=== PATIENT | female | born 1975 | race Caucasian/White ===

== ENCOUNTER → 2016-03-31 | Outpatient (CLI) | payer BC ==
--- NOTE | 2016-04-01 10:50 | ECHOF ---
Referral Reason:C50.111 Breast ca,Z01.818 Pre-chemo MEASUREMENTS -------- HEIGHT: 154.9 cm WEIGHT: 113.4 kg BP: IVSd: 1.2 cm (0.6 - 1.1) LVIDd: 3.9 cm (3.9 - 5.3) LVPWd: 1.5 cm (0.6 - 1.1) IVSs: 1.8 cm LVIDs: 1.9 cm LVPWs: 2.0 cm Ao Diam: 3.2 cm (2.0 - 3.7) AV Cusp: 1.7 cm (1.5 - 2.6) LA Diam: 3.0 cm (2.7 - 3.8) MV EXCURSION: 10.412 mm (> 18.000) MV EF SLOPE: 46 mm/s (70 - 150) EPSS: 0.6 cm MV E Jose: 1.03 m/s MV DecT: 168 ms MV A Jose: 1.01 m/s MV E/A Ratio: 1.02 RAP: 5.00 mmHg RVSP: 10.17 mmHg FINDINGS -------- Sinus rhythm. This was a technically adequate study. There is moderate concentric left ventricular hypertrophy. Overall left ventricular systolic function is normal with, an EF between 55 - 60 %. The right ventricle is normal in size and function. The left atrium is normal in size. The right atrium is normal in size. The aortic valve is trileaflet, and appears structurally normal. No aortic stenosis or regurgitation. The mitral valve leaflets are mildly thickened. Mild mitral regurgitation is present. Mild tricuspid regurgitation present. The right ventricular systolic pressure, as measured by Doppler, is 10.17mmHg. Pulmonic valve appears structurally normal. The aortic root, ascending aorta and aortic arch are normal. The pericardium is normal. CONCLUSIONS -------- 1. Sinus rhythm. 2. Mild mitral regurgitation is present. 3. Mild tricuspid regurgitation present. 4. The right ventricular systolic pressure, as measured by Doppler, is 10.17mmHg. 5. Pulmonic valve appears structurally normal. 6. The aortic root, ascending aorta and aortic arch are normal. 7. The pericardium is normal. 8. This was a technically adequate study. 9. There is moderate concentric left ventricular hypertrophy. 10. Overall left ventricular systolic function is normal with, an EF between 55 - 60 %. 11. The right ventricle is normal in size and function. 12. The left atrium is normal in size. 13. The right atrium is normal in size. 14. The aortic valve is trileaflet, and appears structurally normal. No aortic stenosis or regurgitation. 15. The mitral valve leaflets are mildly thickened. NATIONAL STORMWATER LEADER: Radha Mullins RDCS
== END | disposition home or self-care (01) ==
LOC: RADECHMAIN 13:53
PROVIDERS: ATTEND Internal Medicine Hematology & Oncology
DX: Z01.818 Encounter for other preprocedural examination (principal); C50.919 Malignant neoplasm of unspecified site of unspecified female breast; I08.1 Rheumatic disorders of both mitral and tricuspid valves
CPT/HCPCS: 93306

== ENCOUNTER 2016-04-10 06:23 | Day surgery (SDC) | payer BC ==
[2016-04-08 14:25] VITALS: BMI 52.9
[~2016-04-10 06:23] MED LIST: DEXAMETHASONE SOD PHOSPHATE 10 MG/ML 1 ML VIAL IV ONE; HYDROmorphone 1 MG/ML 1 ML SYRINGE IVP PRN; LACTATED RINGERS 1,000 ML IV SCH; MIDAZOLAM 2 MG/2 ML VIAL IV PRN; ONDANSETRON 4 MG/2 ML VIAL IVP ONE; SCOPOLAMINE 1.5MG/72HR PATCH TRANSDERM ONE
[2016-04-10 06:55] VITALS: TEMP 97.7
[2016-04-10] MEDS ORDERED: HEPARIN SODIUM,PORCINE 5,000 UNIT/ML 1 ML VIAL SQ ONE (07:39)
--- NOTE | 2016-04-10 07:41 | P.GSHP ---
History of Present Illness H&P Date: 04/10/16 Chief Complaint: Right breast cancer Patient was diagnosed with right-sided breast cancer in December of last year. The patient was found have a 2.3 cm mass in the right breast. Axillary adenopathy was also noted but negative on biopsy. She was triple positive. She is undergoing neoadjuvant therapy. Port-A-Cath is requested for the administration of chemotherapy. Definitive surgery has not taken place. Past Medical History Past Medical History: Hypertension, Pneumonia Additional Past Medical History / Comment(s): IBS History of Any Multi-Drug Resistant Organisms: None Reported Past Surgical History: Breast Surgery Additional Past Surgical History / Comment(s): D&C, Breast reduction Past Anesthesia/Blood Transfusion Reactions: No Reported Reaction Past Psychological History: No Psychological Hx Reported Smoking Status: Current every day smoker Past Alcohol Use History: Rare Past Drug Use History: None Reported - Past Family History Mother Family Medical History: No Reported History Medications and Allergies Home Medications Medication Instructions Recorded Confirmed Type Cetirizine HCl 10 mg PO DAILY 10/15/13 04/10/16 History Hydrochlorothiazide [Hydrodiuril] 25 mg PO DAILY 10/15/13 04/10/16 History Lisinopril [Zestril] 20 mg PO DAILY 10/15/13 04/10/16 History Acetaminophen [Tylenol] 500 mg PO Q4-6H PRN 04/08/16 04/10/16 History Metoprolol Tartrate [Lopressor] 50 mg PO DAILY 04/08/16 04/10/16 History Tamoxifen [Nolvadex] 20 mg PO DAILY 04/08/16 04/10/16 History Allergies Allergy/AdvReac Type Severity Reaction Status Date / Time No Known Allergies Allergy Verified 04/10/16 06:57 Surgical - Exam Vital Signs Temp Pulse Resp BP Pulse Ox 97.7 F 81 18 150/91 98 04/10/16 06:53 04/10/16 06:53 04/10/16 06:53 04/10/16 06:53 04/10/16 06:53 Physical exam: General: Well-developed, well-nourished HEENT: Normocephalic, sclerae nonicteric Abdomen: Nontender, nondistended Extremities: No edema Neuro: Alert and oriented Assessment and Plan (1) Breast cancer, right Narrative/Plan: Will proceed with Port-A-Cath placement today. The risks of bleeding, infection , pneumothorax, DVT, catheter malfunction were discussed. She understands and wishes to proceed. Status: Acute
[2016-04-10] MEDS ORDERED: KETAMINE 10 MG/ML 20 ML VIAL ONE (07:49)
[2016-04-10] MEDS ORDERED: PROPOFOL 10 MG/ML 20 ML VIAL IV ONE (07:49)
[2016-04-10] MEDS ORDERED: LIDOCAINE 1% INJ 10MG/ML (20 ML MDV) ONE (07:49)
[2016-04-10] MEDS ORDERED: GLYCOPYRROLATE 0.2 MG/ML 2 ML VIAL ONE (07:49)
[2016-04-10] MEDS ORDERED: fentaNYL (PF) 50 MCG/ML 2 ML AMP ONE (07:49)
[2016-04-10] MEDS ORDERED: MIDAZOLAM 2 MG/2 ML VIAL ONE (07:49)
[2016-04-10] MEDS: ceFAZolin 3 GM in SODIUM CHLORIDE 0.9% 100 ML IVPB ONE ×2 (07:57→08:13)
[2016-04-10] MEDS ORDERED: LIDOCAINE (PF) 10 MG/ML 2 ML VIAL SQ ONE (08:12)
[2016-04-10] MEDS ORDERED: HEPARIN SODIUM,PORCINE 100 UNIT/ML 5 ML VIAL IV ONE (08:13)
[2016-04-10] MEDS ORDERED: LACTATED RINGERS 1,000 ML IV ONE (08:52)
[2016-04-10] MEDS ORDERED: NALOXONE 0.4 MG/ML 1 ML VIAL IV PRN (09:06)
--- NOTE | 2016-04-10 09:10 | P.PCN ---
Date of Procedure: 04/10/16 Procedure(s) Performed: PREOPERATIVE DIAGNOSIS: Breast cancer POSTOPERATIVE DIAGNOSIS: Same PROCEDURE: Port-A-Cath placement SURGEON: Yodit EBL: Minimal ANESTHESIA: Sedation COMPLICATIONS: None OPERATIVE PROCEDURE: Patient was brought and placed on the operative table in the supine position. The patient was sedated per anesthesia that time. The chest and neck were prepped and draped in usual sterile fashion. The ultrasound probe was used to identify the location of the right internal jugular vein. The skin was localized with lidocaine. The Seldinger needle was advanced into the IJ under ultrasound guidance. The wire was advanced through the needle under fluoroscopic guidance into the lower aspect of the neck. In doing so the anatomy suggested that this may have represented the external jugular vein. The needle was withdrawn. The patient's neck was extremely thick. The ultrasound was re-utilized. The internal jugular vein was then identified were in the neck. Under ultrasound guidance again Seldinger needle was advanced into the vein and the wire was advanced under fluoroscopic guidance to the right atrium. A port pocket was created in the right infraclavicular location. The 8-Czech catheter was tunneled from the wire entrance site to the port pocket. The port was then connected to the catheter. The dilator introducer was threaded over the guidewire. The guidewire and dilator were then removed. The catheter was advanced through the introducer and introducer was then removed. The tip was seen to be in the right atrial junction. Port was flushed with both saline and a Hep-Lock solution. There was good flow both in and out of the port. The port was sutured in underlying tissues using 3-0 silk sutures. The subcutaneous tissues were reapproximated using 3-0 Vicryl sutures and the skin at both locations using 4-0 Monocryl sutures. Steri-Strips and sterile dressings then applied. DISPOSITION: Stable to recovery room
--- NOTE | 2016-04-10 09:21 | FL ---
EXAMINATION TYPE: FL guided central line placemt DATE OF EXAM: 04/10/2016 9:04 AM HISTORY: PORT A CATH 2 scanned films; Dr. smart; fl time 44 seconds; insert port a cath
[2016-04-10 09:22] VITALS: RESP 18
--- NOTE | 2016-04-10 09:45 | XR ---
EXAMINATION TYPE: XR chest 1V confirm line [facility] DATE OF EXAM: 04/10/2016 9:33 AM HISTORY: Line placement COMPARISON: 10/15/2013 TECHNIQUE: Single view of the chest is submitted. FINDINGS: Right internal jugular Port-A-Cath is placed with its distal tip overlying the SVC. No evidence for p neumothorax. There is no evidence for focal infiltrate. The heart is stable. Hilar and mediastinal structures are within normal limits. Degenerative changes are seen of the dorsal spine. IMPRESSION: 1. Central venous line as discussed without evidence of pneumothorax.
[2016-04-10 10:18] VITALS: BP 137/90; PULSE 82
== END 2016-04-10 10:44 | disposition home or self-care (01) ==
LOC: OR 06:23
PROVIDERS: ATTEND Surgery
DX: Z45.2 Encounter for adjustment and management of vascular access device (principal); C50.911 Malignant neoplasm of unspecified site of right female breast; R59.0 Localized enlarged lymph nodes; I10 Essential (primary) hypertension; F17.200 Nicotine dependence, unspecified, uncomplicated; Z79.899 Other long term (current) drug therapy
CPT/HCPCS: 81025; 84132; 77001; 36561; C1788; J2250; J2001 ×2; J1644; J1642; J1100; J0690; J2405; J3010; J1170; J2704

== ENCOUNTER → 2016-06-22 | Outpatient (CLI) | payer BC ==
--- NOTE | 2016-06-23 12:32 | ECHOF ---
Referral Reason:Z01.818 chemo MEASUREMENTS -------- HEIGHT: 152.4 cm WEIGHT: 123.4 kg BP: 141/71 RVIDd: 2.9 cm (< 3.3) IVSd: 1.2 cm (0.6 - 1.1) LVIDd: 3.6 cm (3.9 - 5.3) LVPWd: 1.2 cm (0.6 - 1.1) IVSs: 1.5 cm LVIDs: 2.3 cm LVPWs: 1.5 cm LA Diam: 3.3 cm (2.7 - 3.8) Ao Diam: 3.4 cm (2.0 - 3.7) AV Cusp: 1.9 cm (1.5 - 2.6) MV EXCURSION: 12.690 mm (> 18.000) MV EF SLOPE: 55 mm/s (70 - 150) EPSS: 0.3 cm MV E Jose: 0.89 m/s MV DecT: 341 ms MV A Jose: 0.97 m/s MV E/A Ratio: 0.92 FINDINGS -------- Sinus rhythm. This was a technically difficult study with suboptimal views. The left ventricular size is normal. There is borderline concentric left ventricular hypertrophy. Overall left ventricular systolic function is normal with, an EF between 60 - 65 %. The right ventricle is normal in size. The left atrial size is normal. The right atrium is normal in size. The aortic valve was not well visualized. The mitral valve is normal. The tricuspid valve appears structurally normal. The pulmonic valve was not well visualized. The aortic root size is normal. Normal inferior vena cava with normal inspiratory collapse consistent with estimated right atrial pressure of 5 mmHg. There is no pericardial effusion. CONCLUSIONS -------- 1. Sinus rhythm. 2. The aortic root size is normal. 3. Normal inferior vena cava with normal inspiratory collapse consistent with estimated right atrial pressure of 5 mmHg. 4. There is no pericardial effusion. 5. This was a technically difficult study with suboptimal views. 6. There is borderline concentric left ventricular hypertrophy. 7. Overall left ventricular systolic function is normal with, an EF between 60 - 65 %. 8. The left atrial size is normal. 9. The aortic valve was not well visualized. 10. The mitral valve is normal. 11. The tricuspid valve appears structurally normal. 12. The pulmonic valve was not well visualized. MANAGEMENT ENGINEER: Annmarie Valdes RDCS
== END | disposition home or self-care (01) ==
LOC: RADECHMAIN 13:07
PROVIDERS: ATTEND Internal Medicine Hematology & Oncology
DX: Z01.818 Encounter for other preprocedural examination (principal); I51.7 Cardiomegaly
CPT/HCPCS: 93306

== ENCOUNTER → 2016-09-02 | Outpatient (CLI) | payer BC ==
--- NOTE | 2016-09-03 11:43 | ECHOF ---
Referral Reason:C50.111 Breast CA Z01.818 Pre Chemo MEASUREMENTS -------- HEIGHT: 152.4 cm WEIGHT: 131.5 kg BP: RVIDd: 3.4 cm (< 3.3) IVSd: 1.2 cm (0.6 - 1.1) LVIDd: 3.9 cm (3.9 - 5.3) LVPWd: 1.1 cm (0.6 - 1.1) IVSs: 1.2 cm LVIDs: 3.3 cm LVPWs: 1.2 cm MV EXCURSION: 15.119 mm (> 18.000) MV EF SLOPE: 91 mm/s (70 - 150) EPSS: 0.6 cm MV E Jose: 0.81 m/s MV DecT: 252 ms MV A Jose: 0.86 m/s MV E/A Ratio: 0.94 FINDINGS -------- Sinus rhythm. This was a technically adequate study. There is mild concentric left ventricular hypertrophy. Overall left ventricular systolic function is low-normal with, an EF between 50 - 55 %. The right ventricle is normal in size. The left atrial size is normal. The right atrial size is normal. There is mild aortic valve sclerosis. There is no evidence of aortic regurgitation. Mild mitral annular calcification present. Mild mitral regurgitation is present. Mild tricuspid regurgitation present. There is no evidence of pulmonary hypertension. The right ventricular systolic pressure, as measured by Doppler, is {RVSP}. There is no pulmonic regurgitation present. The aortic root size is normal. There is no pericardial effusion. CONCLUSIONS -------- 1. There is mild concentric left ventricular hypertrophy. 2. Overall left ventricular systolic function is low-normal with, an EF between 50 - 55 %. 3. There is mild aortic valve sclerosis. 4. Mild mitral annular calcification present. 5. Mild mitral regurgitation is present. 6. Mild tricuspid regurgitation present. 7. There is no evidence of pulmonary hypertension. 8. The right ventricular systolic pressure, as measured by Doppler, is {RVSP}. MEDICAL COST CONSULTANT: Jayla Rutherford RDCS
== END | disposition home or self-care (01) ==
LOC: RADECHMAIN 15:02
PROVIDERS: ATTEND Internal Medicine Hematology & Oncology
DX: Z01.818 Encounter for other preprocedural examination (principal); I34.0 Nonrheumatic mitral (valve) insufficiency; I07.1 Rheumatic tricuspid insufficiency; I35.8 Other nonrheumatic aortic valve disorders
CPT/HCPCS: 93306

== ENCOUNTER → 2016-12-14 | Outpatient (CLI) | payer BC ==
--- NOTE | 2016-12-15 08:23 | ECHOF ---
Referral Reason:C50.111 Breast CA MEASUREMENTS -------- HEIGHT: 152.4 cm WEIGHT: 132.4 kg BP: IVSd: 0.9 cm (0.6 - 1.1) LVIDd: 4.0 cm (3.9 - 5.3) LVPWd: 1.1 cm (0.6 - 1.1) IVSs: 1.6 cm LVIDs: 2.3 cm LVPWs: 1.9 cm Ao Diam: 3.2 cm (2.0 - 3.7) AV Cusp: 2.3 cm (1.5 - 2.6) LA Diam: 3.4 cm (2.7 - 3.8) MV EXCURSION: 10.759 mm (> 18.000) MV EF SLOPE: 56 mm/s (70 - 150) EPSS: 0.5 cm MV E Jose: 0.94 m/s MV DecT: 171 ms MV A Jose: 0.93 m/s MV E/A Ratio: 1.01 RAP: 5.00 mmHg RVSP: 13.09 mmHg FINDINGS -------- Sinus rhythm. This was a technically difficult study with suboptimal views. The left ventricular size is normal. Left ventricular wall thickness is normal. Overall left ventricular systolic function is normal with, an EF between 55 - 60 %. The right ventricle is normal in size and function. The left atrium is normal in size. The right atrium is normal in size. Lumison used to enhance images The aortic valve is trileaflet, and appears structurally normal. No aortic stenosis or regurgitation. There is trace mitral regurgitation. Trace tricuspid regurgitation present. The right ventricular systolic pressure, as measured by Doppler, is 13.09mmHg. Pulmonic valve appears structurally normal. The aortic root, ascending aorta and aortic arch are normal. The pericardium is normal. CONCLUSIONS -------- 1. Sinus rhythm. 2. The aortic valve is trileaflet, and appears structurally normal. No aortic stenosis or regurgitation. 3. There is trace mitral regurgitation. 4. Trace tricuspid regurgitation present. 5. The right ventricular systolic pressure, as measured by Doppler, is 13.09mmHg. 6. Pulmonic valve appears structurally normal. 7. The aortic root, ascending aorta and aortic arch are normal. 8. The pericardium is normal. 9. This was a technically difficult study with suboptimal views. 10. The left ventricular size is normal. 11. Left ventricular wall thickness is normal. 12. Overall left ventricular systolic function is normal with, an EF between 55 - 60 %. 13. The right ventricle is normal in size and function. 14. The left atrium is normal in size. 15. The right atrium is normal in size. 16. Lumison used to enhance images TOOL CLERK: Annmarie Valdes RDCS
== END | disposition home or self-care (01) ==
LOC: RADECHMAIN 15:06
PROVIDERS: ATTEND Internal Medicine Hematology & Oncology
DX: I07.1 Rheumatic tricuspid insufficiency (principal); C50.919 Malignant neoplasm of unspecified site of unspecified female breast; Z01.818 Encounter for other preprocedural examination
CPT/HCPCS: 93306

== ENCOUNTER → 2017-06-01 | Outpatient (CLI) | payer BC ==
--- NOTE | 2017-06-02 07:35 | MM ---
Reason for exam: additional evaluation requested from prior study. Last mammogram was performed 1 year and 5 months ago. History: Patient has history of breast cancer at age 40. Radiation therapy of the right breast, September 2016. Lumpectomy of the right breast, July 2016. Chemotherapy, 2016. Reductions of both breasts, 2006. Taking antineoplastic beginning at age 40. Physical Findings: Nurse did not find any significant physical abnormalities on exam. MG Diagnostic Mammo w CAD EWA Bilateral CC and MLO view(s) were taken. Prior study comparison: January 10, 2016, mammogram. September 01, 2013, mammogram. There are scattered fibroglandular densities. Nodular asymmetry medial left breast does not persist on spot compression view. Post surgical and post therapy changes right breast. Lateral asymmetric density improves on the CC view but prominent rolled tissue remains, 6 month follow up recommended. These results were verbally communicated with the patient and result sheet given to the patient on 06/01/17. ASSESSMENT: Probably benign, BI-RAD 3 RECOMMENDATION: Follow-up diagnostic mammogram of the right breast in 6 months.
== END | disposition home or self-care (01) ==
LOC: RADMAMWWP 14:59
PROVIDERS: ATTEND Radiology Radiation Oncology
DX: C50.511 Malignant neoplasm of lower-outer quadrant of right female breast (principal)
CPT/HCPCS: 77066

== ENCOUNTER → 2017-06-14 | Outpatient (CLI) | payer BC ==
[2017-06-14 16:16] VITALS: BMI 61.9
== END | disposition home or self-care (01) ==
LOC: MNTWWP 15:15
PROVIDERS: ATTEND Internal Medicine Hematology & Oncology
DX: R63.5 Abnormal weight gain (principal); C50.111 Malignant neoplasm of central portion of right female breast
CPT/HCPCS: 97802

== ENCOUNTER → 2017-07-01 | Outpatient (CLI) | payer BC ==
[2017-07-01 15:11] LABS: Basophils % (A) 1 %; Eosinophils # (A) 0.4 k/uL (0-0.7); Eosinophils % (A) 7 %; HCT 33.9 % (34.0-46.0); Lymphocytes # (A) 1.1 k/uL (1.0-4.8); Lymphocytes % (A) 19 %; MCH 25.9 pg (25.0-35.0); MCHC 32.5 g/dL (31.0-37.0); MCV 79.7 fL (80.0-100.0); Mean Platelet Volume 6.7; Monocytes # (A) 0.4 k/uL (0-1.0); Monocytes % (A) 8 %; Neutrophils # (A) 3.6 k/uL (1.3-7.7); Neutrophils % (A) 62 %; Platelet Count 342 k/uL (150-450); RBC 4.25 m/uL (3.80-5.40); RDW 15.8 % (11.5-15.5); WBC 5.7 k/uL (3.8-10.6)
[2017-07-01 15:26] LABS: Albumin 4.1 g/dL (3.5-5.0); Calcium 9.7 mg/dL (8.4-10.2); Total Bilirubin 0.3 mg/dL (0.2-1.3); Total Protein 7.5 g/dL (6.3-8.2)
--- NOTE | 2017-07-01 16:27 | BD ---
EXAMINATION TYPE: MG DEXA axial skeleton. DATE OF EXAM: 07/01/2017 COMPARISON: NONE CLINICAL HISTORY: 41-year-old female with breast cancer, long-term medication use Height: 60 Weight: 306.4 FRAX RISK QUESTIONS: Alcohol (3 or more units per day): no Family History (Parent hip fracture): no Glucocorticoids (More than 3mos): no (Ex: prednisone, prednisolone, methylprednisolone, dexamethasone, and hydrocortisone). History of Fracture in Adulthood: no Secondary Osteoporosis: 1. Type 1 Diabetes: no 2. Hyperthyroidism: no 3. Menopause before 45: pt is only 41/ still having cycles 4. Malnutrition: no 5. Chronic liver disease: no Rheumatoid Arthritis: no Current Tobacco Use: no RISK FACTORS HISTORY OF: Family History of Osteoporosis: yes Active: sometimes Diet low in dairy products/other sources of calcium: no Postmenopausal woman: no If Premenopausal, do you have irregular periods: yes Lost more than 2 inches in height since high school: no Frequent falls: no Adrenal Insufficiency: no MEDICATIONS: nerlynx, hydrochlorothiazide, clarain, metoprolol, lisinopril, zantac, femera Additional History: just finished chemo/radiation pt had breast cancer EXAM MEASUREMENTS: Bone mineral densitometry was performed using the [employer]. Bone mineral density as measured about the Lumbar spine is: ----- L1-L4(G/cm2): 1.236 T Score Values are as follows: ----- L2: 0.0 ----- L3: 0.0 ----- L4: 1.7 ----- L1-L4: 0.5 Bone mineral density baseline Bone mineral density about the R hip (g/cm2): 1.175 Bone mineral density about the L hip (g/cm2): 1.087 T Score values are as follows: -----R Neck: 1.0 -----L Neck: 0.4 -----R Total: 1.8 -----L Total: 1.5 Bone mineral density baseline IMPRESSION: Given patient's premenopausal status, Z scores are utilized. Bone mineral density is within the expected range for age. Follow-up as clinically indicated. NOTE: T-SCORE=SD OF THE YOUNG ADULT MEAN.
== END | disposition home or self-care (01) ==
LOC: RADBDWWP 14:24
PROVIDERS: ATTEND Internal Medicine Hematology & Oncology
DX: C50.111 Malignant neoplasm of central portion of right female breast (principal); Z79.811 Long term (current) use of aromatase inhibitors
CPT/HCPCS: 36415; 77080; 80053; 85025

== ENCOUNTER → 2017-07-14 | Outpatient (CLI) | payer BC ==
[~2017-07-14] MED LIST changes: -DEXAMETHASONE SOD PHOSPHATE 10 MG/ML 1 ML VIAL IV ONE; -HYDROmorphone 1 MG/ML 1 ML SYRINGE IVP PRN; -LACTATED RINGERS 1,000 ML IV SCH; +LEUPROLIDE ACET 11.25MG SYRGKIT IM NR; -MIDAZOLAM 2 MG/2 ML VIAL IV PRN; -ONDANSETRON 4 MG/2 ML VIAL IVP ONE; -SCOPOLAMINE 1.5MG/72HR PATCH TRANSDERM ONE
[2017-07-14 15:33] VITALS: BP 143/71; PULSE 74; RESP 16; TEMP 97.8
== END | disposition home or self-care (01) ==
LOC: PROCWHC3 15:07
PROVIDERS: ATTEND Internal Medicine Hematology & Oncology
DX: C50.111 Malignant neoplasm of central portion of right female breast (principal)
CPT/HCPCS: 96401; J1950

== ENCOUNTER → 2017-07-26 | Outpatient (CLI) | payer BC ==
--- NOTE | 2017-07-27 11:03 | ECHOF ---
Referral Reason:Breast Cancer C50.11 MEASUREMENTS -------- HEIGHT: 152.4 cm WEIGHT: 136.1 kg BP: 127/80 RVIDd: 3.9 cm (< 3.3) IVSd: 1.2 cm (0.6 - 1.1) LVIDd: 3.7 cm (3.9 - 5.3) LVPWd: 1.2 cm (0.6 - 1.1) IVSs: 1.5 cm LVIDs: 2.7 cm LVPWs: 1.5 cm LAESV Index (A-L): 15.72 ml/m Ao Diam: 3.1 cm (2.0 - 3.7) AV Cusp: 1.7 cm (1.5 - 2.6) LA Diam: 3.6 cm (2.7 - 3.8) MV E Jose: 0.86 m/s MV DecT: 207 ms MV A Jose: 0.74 m/s MV E/A Ratio: 1.16 RAP: 5.00 mmHg RVSP: 23.38 mmHg FINDINGS -------- Sinus rhythm. This was a technically difficult study with suboptimal views. The left ventricular size is normal. There is mild concentric left ventricular hypertrophy. Overa ll left ventricular systolic function is normal with, an EF between 55 - 60 %. The right ventricle is mild to moderately enlarged. Normal LA size by volume 22+/-6 ml/m2. The right atrium was not well visualized. 3ml of Lumason was utilized for enhancement of images. The aortic valve was not well visualized. There is no evidence of aortic regurgitation. There is no evidence of aortic stenosis. The mitral valve leaflets are mildly thickened. There is trace mitral regurgitation. Trace tricuspid regurgitation present. Right ventricular systolic pressure is normal at < 35 mmHg. There is no evidence of pulmonary hypertension. The pulmonic valve was not well visualized. The aortic root size is normal. Normal inferior vena cava with normal inspiratory collapse consistent with estimated right atrial pre ssure of 5 mmHg. There is no pericardial effusion. CONCLUSIONS -------- 1. Sinus rhythm. 2. This was a technically difficult study with suboptimal views. 3. The left ventricular size is normal. 4. There is mild concentric left ventricular hypertrophy. 5. Overall left ventricular systolic function is normal with, an EF between 55 - 60 %. 6. The right ventricle is mild to moderately enlarged. 7. Normal LA size by volume 22+/-6 ml/m2. 8. The right atrium was not well visualized. 9. 3ml of Lumason was utilized for enhancement of images. 10. The aortic valve was not well visualized. 11. The mitral valve leaflets are mildly thickened. 12. There is trace mitral regurgitation. 13. Trace tricuspid regurgitation present. 14. Right ventricular systolic pressure is normal at < 35 mmHg. 15. There is no evidence of pulmonary hypertension. 16. The pulmonic valve was not well visualized. 17. The aortic root size is normal. 18. There is no pericardial effusion. LEAD QUALITY CONTROL TECHNICIAN: Eulogio Garcia RDCS
== END | disposition home or self-care (01) ==
LOC: RADECHMAIN 16:33
PROVIDERS: ATTEND Internal Medicine Hematology & Oncology
DX: C50.111 Malignant neoplasm of central portion of right female breast (principal)
CPT/HCPCS: 93306; Q9950

== ENCOUNTER → 2017-10-18 | Outpatient (CLI) | payer BC ==
[~2017-10-18] MED LIST changes: +LEUPROLIDE ACET 11.25MG SYRGKIT IM ONE
[2017-10-18 15:48] VITALS: BP 152/96; PULSE 91; RESP 14; TEMP 97.7
== END | disposition home or self-care (01) ==
LOC: PROCWHC3 15:38
PROVIDERS: ATTEND Internal Medicine Hematology & Oncology
DX: C50.111 Malignant neoplasm of central portion of right female breast (principal)
CPT/HCPCS: 96402; J1950

== ENCOUNTER → 2018-05-02 | Outpatient (CLI) | payer BC ==
--- NOTE | 2018-05-02 14:16 | MM ---
Reason for exam: follow-up at short interval from prior study. Last mammogram was performed 11 months ago. History: Patient has history of breast cancer at age 40. Family history of breast cancer in aunt at age 81. Radiation therapy of the right breast, September 2016. Lumpectomy of the right breast, July 2016. Chemotherapy, 2017. Reductions of both breasts, 2006. Taking antineoplastic beginning at age 40. Physical Findings: Nurse did not find any significant physical abnormalities on exam. MG 3D Diag Mammo W/Cad RT CC and MLO view(s) were taken of the right breast. Prior study comparison: June 01, 2017, bilateral MG diagnostic mammo w CAD EWA. January 10, 2016, mammogram. The breast tissue is heterogeneously dense. This may lower the sensitivity of mammography. Finding #1: Architectural distortion in the right breast consistent with known excision biopsy changes. Finding #2: There are typically benign round calcifications in the right breast. These results were verbally communicated with the patient and result sheet given to the patient on 05/02/18. ASSESSMENT: Incomplete: need additional imaging evaluation, BI-RAD 0 RECOMMENDATION: Ultrasound of the right breast.
--- NOTE | 2018-05-02 14:19 | USB ---
Reason for exam: additional evaluation requested from abnormal screening. History: Patient has history of breast cancer at age 40. Family history of breast cancer in aunt at age 81. Radiation therapy of the right breast, September 2016. Lumpectomy of the right breast, July 2016. Chemotherapy, 2016. Reductions of both breasts, 2006. Taking antineoplastic beginning at age 40. US Breast Limited RT Right limited breast ultrasound including focal area of concern, retroareolar and axilla demonstrates a 0.8 x 1.2 x 1.0cm oval, irregular, mixed, hypoechoic lesion at 7 o'clock, extends to skin surface, questionable scar versus other. These results were verbally communicated with the patient and result sheet given to the patient on 05/02/18. ASSESSMENT: Suspicious, BI-RAD 4 RECOMMENDATION: Ultrasound core biopsy of the right breast. Called Dr. Barnes with mammographic findings. Biopsy scheduled for 05/17/18 at 12:20. PRELIMINARY REPORT CALLED AND FAXED TO DR. BARNES ON 05/02/18.
== END | disposition home or self-care (01) ==
LOC: RADMAMWWP 09:42
PROVIDERS: ATTEND Radiology Radiation Oncology
DX: R92.8 Other abnormal and inconclusive findings on diagnostic imaging of breast (principal); Z85.3 Personal history of malignant neoplasm of breast
CPT/HCPCS: 77061; 77065

== ENCOUNTER → 2018-05-17 | Day surgery (SDC) | payer BC, OTHER ==
[2018-05-17 11:45] VITALS: RESP 16; BMI 56.2
[2018-05-17 12:52] VITALS: BP 111/69; PULSE 79; TEMP 98.1
--- NOTE | 2018-05-17 12:56 | USB ---
EXAMINATION TYPE: US biopsy breast VAD RT DATE OF EXAM: 05/17/2018 CLINICAL HISTORY: R92.8 abnormal mammo. Personal history of right breast cancer. TECHNIQUE: Ultrasound guided core biopsy of right breast. COMPARISON: 05/02/2018 FINDINGS: The procedure of ultrasound guided core biopsy was explained to the patient. Benefits, alternatives, and risks were discussed. An informed consent was then obtained. Preprocedural timeout was performed. The patient was placed in supine positioning for imaging and for the procedure. The overlying skin was prepped and draped in usual sterile fashion. 10 cc of lidocaine buffered with bicarbonate was used as anesthetic into the skin and subcutaneous tissue up to area of concern in the right breast. Under ultrasound guidance, a 12-gauge vacuum assisted biopsy gun device was used to obtain 4 core samples. A biopsy marker was not placed as this site is easily reproducible at the lumpectomy site and skin tract. The patient tolerated the procedure well without any immediate complication. The patient was kept in the radiology department for short stay after the procedure and then discharged home in stable condition. IMPRESSION: Successful, uncomplicated ultrasound guided core biopsy of the superficial aspect of the prior lumpectomy site at the 7:00 position, likely fat necrosis, full pathology results to follow. Pathology Results: Benign RIGHT BREAST AT 1:00 POSITION, NEEDLE CORE BIOPSIES: Fat necrosis and reactive stromal changes including hemosiderin laden macrophages and stromal sclerosis. Recommendation Follow up ultrasound of the right breast in 6 months. NEMOD
== END ==
LOC: RADUSWWP 11:29
PROVIDERS: ATTEND Radiology Radiation Oncology
DX: N64.1 Fat necrosis of breast (principal); Z85.3 Personal history of malignant neoplasm of breast
CPT/HCPCS: 88305; 19083; J2001

== ENCOUNTER → 2018-05-17 | Outpatient (CLI) | payer BC, OTHER ==
--- NOTE | 2018-05-17 08:39 | CT ---
EXAMINATION TYPE: CT chest w con DATE OF EXAM: 05/17/2018 COMPARISON: Oncology chest CT 09/21/2016 HISTORY: 42-year-old female Cough, history of breast CA TECHNIQUE: Contiguous axial scanning of the chest after the administration of 100 mL of Isovue 300. Coronal/sagittal reconstructions performed. CT DLP: 582.6mGycm. Automatic exposure control utilized for a dose reduction. FINDINGS: Heart normal size without pericardial effusion. Aorta normal caliber with bovine configuration to the aortic arch. There is some focal strandy soft tissue density in the anterior mediastinum. This area seems to have some strands of interspersed fat and an overall nonmasslike configuration measuring approximately 4.2 x 2.0 cm. No thoracic lymphadenopathy by CT size criteria. Suggestion of lumpectomy scar lateral right breast a nd some surgical material in the right axilla. Evaluation of the lungs shows minimal right apical pleural parenchymal scarring. No consolidation or pleural effusion. Visualized upper abdomen shows mild diffuse thickening of the left adrenal gland without discrete nod ularity. Bones: No osseous destructive process. IMPRESSION: 1. Focal strandy nonmasslike soft tissue density anterior mediastinum suggestive of thymic hyperplasi a. Findings unchanged from 09/21/2016. 2. Status post right breast lumpectomy and axillary node dissection. No evident metastatic disease.
== END ==
LOC: RADCTMAIN 07:08
PROVIDERS: ATTEND Internal Medicine Hematology & Oncology
DX: C50.111 Malignant neoplasm of central portion of right female breast (principal); Z98.890 Other specified postprocedural states
CPT/HCPCS: 71260; Q9967

== ENCOUNTER → 2018-06-07 | Outpatient (CLI) | payer BC ==
[2018-06-07 17:33] LABS: Basophils # (A) 0.1 k/uL (0-0.2); Basophils % (A) 1 %; Eosinophils # (A) 0.4 k/uL (0-0.7); Eosinophils % (A) 6 %; HCT 35.1 % (34.0-46.0); HGB 11.5 gm/dL (11.4-16.0); Lymphocytes # (A) 1.6 k/uL (1.0-4.8); Lymphocytes % (A) 20 %; MCH 28.4 pg (25.0-35.0); MCHC 32.8 g/dL (31.0-37.0); MCV 86.4 fL (80.0-100.0); Mean Platelet Volume 7.1; Monocytes # (A) 0.4 k/uL (0-1.0); Monocytes % (A) 5 %; Neutrophils # (A) 5.1 k/uL (1.3-7.7); Neutrophils % (A) 66 %; Platelet Count 358 k/uL (150-450); RBC 4.06 m/uL (3.80-5.40); RDW 13.8 % (11.5-15.5); WBC 7.6 k/uL (3.8-10.6)
[2018-06-07 17:39] LABS: Potassium 4.8 mmol/L (3.5-5.1)
== END ==
LOC: LABPAT 16:42
PROVIDERS: ATTEND Obstetrics & Gynecology
DX: Z01.818 Encounter for other preprocedural examination (principal); Z01.812 Encounter for preprocedural laboratory examination; I10 Essential (primary) hypertension; N92.0 Excessive and frequent menstruation with regular cycle; C50.919 Malignant neoplasm of unspecified site of unspecified female breast
CPT/HCPCS: 36415; 80051; 82565; 82947; 84520; 85025; 87086; 93005

== ENCOUNTER → 2018-06-09 | Outpatient (CLI) | payer BC, OTHER | END | disposition home or self-care (01) | LOC: LABPAT 12:00 | PROVIDERS: ATTEND Obstetrics & Gynecology | DX: Z01.812 Encounter for preprocedural laboratory examination (principal); C50.919 Malignant neoplasm of unspecified site of unspecified female breast; Z17.0 Estrogen receptor positive status [ER+]; N92.0 Excessive and frequent menstruation with regular cycle; I10 Essential (primary) hypertension | CPT/HCPCS: 36415; 86850; 86870; 86880; 86900; 86901 ==

== ENCOUNTER 2018-06-14 05:55 | Day surgery (SDC) | payer BC, OTHER ==
[2018-06-08 08:54] VITALS: BMI 54.6
--- NOTE | 2018-06-09 17:18 | HP ---
HISTORY AND PHYSICAL REASON FOR ADMISSION: Surgery on June 14. HISTORY OF PRESENT ILLNESS: The patient is a 42-year-old 2, para 1-0-0-1 who is referred by Dr. Jenaro Washburn following the diagnosis of breast cancer. He has recommended that she have her ovaries surgically excised. The patient carries a history of ERPR and HER-2/candice positive breast cancer and had subsequent surgical treatment with chemotherapy and radiation treatment, but has been recommended to have hormonal treatment. She continues to have very heavy cycles and she has had very significant difficulty getting coverage for Lupron therapy. Given her history of very heavy cycles for many years with no successful intervention, she has also requested a hysterectomy. As a result, we are planning to proceed with a hysterectomy as well as BSO and the most indicated approach is Da Curtis. PAST MEDICAL HISTORY: Is significant for the breast cancer as previously noted. She additionally has hypertension and a history of irritable bowel syndrome and at some point had some issues with kidney failure, which resolved. PAST SURGICAL HISTORY: Significant for bilateral breast reductive surgery in 2006. She then had breast lumpectomy with sentinel node dissections. There were apparently no issues with anesthesia. OBSTETRICAL/SALES ENABLEMENT SPECIALIST HISTORY: 2, para 1-0-1-1 with 1 term delivery and 1 early miscarriage. Method of contraception at this time is none. Gynecologic history is unremarkable with no history of any infections to include STDs. FAMILY HISTORY: Does demonstrate a history of ovarian cancer in a maternal great aunt and breast cancer on her father's side as well. Additionally, there is a history of uterine cancer in the family as well. SOCIAL HISTORY: The patient is single and is a nonsmoker. She reports occasional alcohol and denies any other social concerns. CURRENT MEDICATIONS: Include Femara 2.5 mg daily, hydrochlorothiazide 25 mg daily, letrozole 2.5 mg daily, lisinopril 20 mg daily, vitamin D daily, Tessalon Perles p.r.n., Claritin 10 mg daily, Flonase daily. ALLERGIES: No known drug allergies. REVIEW OF SYSTEMS: Confined to history of present illness. PHYSICAL EXAMINATION: Vital signs are stable. The patient is afebrile. In general, this is a well- developed, morbidly obese white female in no acute distress. Her heart has regular rhythm and rate without murmur. Her lungs are clear to auscultation bilaterally in all jessica. ABDOMEN: Obese, nondistended, has normoactive bowel sounds, soft, nontender, and without any palpable masses, hepatosplenomegaly, or hernias. Her extremities without any cyanosis, clubbing, or edema and are nontender to palpation bilaterally. Pelvic examination demonstrates normal external genitalia and BUS with normal vaginal mucosa and cervix. Uterus approximately 4 weeks in size, mid plane, mobile, nontender, normal in shape. The adnexa are nonpalpable without any apparent masses bilaterally. ASSESSMENT AND PLAN: Menorrhagia, history of breast cancer: The recommendation of Medical Oncology is for bilateral salpingo-oophorectomy and, given the patient's long-standing history of menstrual concerns, we will carry out hysterectomy under the same anesthetic. Examination bears out the da Curtis approach to be most effective. As a result, she will undergo a da Curtis robotically assisted laparoscopic hysterectomy with bilateral salpingo-oophorectomy and subsequent diagnostic cystoscopy. The risks and complications of these procedures have been thoroughly discussed including the risks for bleeding, bleeding requiring transfusion, infection, and injury to local structures to specifically include the bowel, bladder, and ureters. We also discussed injuries that are unique to Da Curtis surgery, specifically thermal injury and vaginal cuff dehiscence. We went on to discuss the typical hospital and postoperative courses. She has understood all of this and agreed to proceed. We are scheduled for the procedures as outlined above on the morning of June 14, 2018. MMODL / IJN: [id number] /
[~2018-06-14 05:55] MED LIST changes: +DEXAMETHASONE SOD PHOSPHATE 10 MG/ML 1 ML VIAL IV ONE; -LEUPROLIDE ACET 11.25MG SYRGKIT IM NR; -LEUPROLIDE ACET 11.25MG SYRGKIT IM ONE; +MORPHINE SULFATE 4 MG/ML SYRINGE IV PRN; +ONDANSETRON 4 MG/2 ML VIAL IVP ONE; +ceFAZolin 3 GM in SODIUM CHLORIDE 0.9% 100 ML IVPB ONE
[2018-06-14] MEDS ORDERED: LIDOCAINE 1% 20 ML VIAL (10MG/ML) FOR IV START INTRADERMA ONE ×2 (07:00)
[2018-06-14] MEDS: LACTATED RINGERS 1,000 ML IV SCH (07:00)
[2018-06-14] MEDS ORDERED: NEOSTIGMINE 1 MG/ML 10 ML VIAL ONE (07:46)
[2018-06-14] MEDS ORDERED: ePHEDrine SULFATE/0.9% NACL/PF 50 MG/5 ML SYRINGE IV ONE (07:46)
[2018-06-14] MEDS ORDERED: MIDAZOLAM 2 MG/2 ML VIAL ONE (07:46)
[2018-06-14] MEDS ORDERED: GLYCOPYRROLATE 0.2 MG/ML 2 ML VIAL ONE (07:46)
[2018-06-14] MEDS ORDERED: PHENYLEPHRINE-0.9% NACL SYG 1 MG/10 ML SYRINGE ONE (07:46)
[2018-06-14] MEDS ORDERED: PROPOFOL 10 MG/ML 20 ML VIAL IV ONE (07:46)
[2018-06-14] MEDS ORDERED: HYDROmorphone (PF) 1 MG/ML ONE (07:46)
[2018-06-14] MEDS ORDERED: VECURONIUM 10 MG VIAL IV ONE (07:46)
[2018-06-14] MEDS ORDERED: LIDOCAINE 1% INJ 10MG/ML (20 ML MDV) ONE (07:46)
[2018-06-14] MEDS ORDERED: fentaNYL (PF) 50 MCG/ML 2 ML AMP ONE (07:46)
[2018-06-14] MEDS ORDERED: SUCCINYLCHOLINE CHLORIDE VIAL 200 MG/10 ML VIAL IV ONE (07:46)
[2018-06-14] MEDS ORDERED: ROPIVACAINE 5 MG/ML 30 ML VIAL MISCELLANE ONE ×2 (08:12→09:24)
[2018-06-14] MEDS ORDERED: IBUPROFEN 600 MG TAB PO PRN (09:36)
[2018-06-14] MEDS ORDERED: diphenhydrAMINE 50 MG/ML 1 ML VIAL IVP PRN (09:36)
[2018-06-14] MEDS ORDERED: ONDANSETRON 4 MG/2 ML VIAL IVP PRN (09:36)
[2018-06-14] MEDS ORDERED: METOCLOPRAMIDE 5 MG/ML 2 ML VIAL IVP PRN (09:36)
[2018-06-14] MEDS ORDERED: Acetaminophen-Codeine 300-30mg TAB PO PRN ×2 (09:36)
[2018-06-14] MEDS ORDERED: SIMETHICONE 80 MG CHEWABLE PO PRN (09:36)
--- NOTE | 2018-06-14 09:36 | P.OP ---
Date of Procedure: 06/14/18 Preoperative Diagnosis: #1. Status post ER/[place] positive breast cancer #2. Menorrhagia Postoperative Diagnosis: Same Procedure(s) Performed: #1. Da Curtis robotically assisted laparoscopic hysterectomy with bilateral salpingo-oophorectomy #2. Diagnostic cystoscopy Anesthesia: DOMINIQUE Surgeon: Gerald Olvera Estimated Blood Loss (ml): 100 IV fluids (ml): 1,000 Urine output (ml): 100 Pathology: other (Uterus, tubes, and ovaries) Condition: stable Disposition: PACU Operative Findings: Preoperative pelvic examination demonstrated a 4 week midplane mobile normal shaped uterus with normal adnexa bilaterally. Intraoperatively, the uterus was normal with a roughly 1-2 cm posterior left fundal fibroid. Additionally the bilateral ovaries were enlarged with bilateral cysts consistent with probable PCO S findings. The dome of the bladder appeared normal both from cystoscopic perspective as well as laparoscopic perspective. The bilateral ureteral orifices were seen peristalsing urine. The remainder of the abdominal examination appeared normal. There was a minimal filmy adhesion from the sigmoid colon to the anterior abdominal wall which was taken down during the case. Description of Procedure: The patient was prepped and draped in usual fashion after general endotracheal anesthesia was administered by the anesthesiologist. A weighted speculum was placed and the anterior lip of the cervix grasped with a single-tooth tenaculum. The bladder was catheterized. A [employer] uterine manipulator with a medium cup was placed in standard fashion and fixed. Attention was turned to the abdomen where a roughly 8 mm incision was made in the transverse plane just above the umbilicus allowing insertion of a 5 mm optical port under direct visualization without difficulty. A pneumoperitoneum was then instilled without difficulty. Trendelenburg positioning was utilized and a site was selected approximate 10-12 cm lateral and 5 cm inferior to the optical port on the right side where an 8 mm incision was made in the transverse plane allowing insertion of an 8 mm da Curtis port under direct visualization without difficulty. A matching port was placed in the left lower quadrant. The site between the optical port and the da Curtis port was then bisected and a site selected approximately 4 cm above the optical port with 10 mm incision was made allowing insertion of a 10 mm optical port under direct visualization without difficulty. The scope was switched to a lateral port and the 5 mm optical port was replaced within 8mm da Curtis optical port. The robot was then docked and a male and bipolar cautery placed in the left arm or a monopolar cautery scissors was the right arm. The findings are as noted above. I removed myself to the console and attention was turned to the right infundibulopelvic ligament which was cauterized with the [place] and then cut sharply with the monopolar cautery. Serial bites were taken along the broad ligament and fallopian tube to the round ligament each being cauterized, then cut with monopolar cautery scissors. Once the round ligament had been divided, the bladder peritoneum was developed across the midline. The uterine vasculature was skeletonized and cauterized with [place] bipolar cautery forceps. Attention was turned the left side where similar operations were carried out without any difficulty. Attention was then turned to the bladder was further dissected both sharply and bluntly. The vasculature was then fully cauterized bilaterally and divided. The vagina was then sealed and the uterus anteverted allowing opening of the vaginal cuff along the posterior cul-de-sac sharply with monopolar cautery scissors. The cup was followed around laterally and the uterus retroverted. The incisions were connected anteriorly and the [place], tubes, and ovaries removed into the vagina. A fairly significant point of bleeding was noted on the left vascular pedicle and made hemostatic with the [place] bipolar cautery forceps. The monopolar scissors were replaced with a laparoscopic suturing device and a stitch of 2-0 Stratafix inserted into the abdomen. The vaginal cuff was then closed in standard fashion. Thorough suction irrigation was carried out and there was noted to be excellent hemostasis. I returned to the patient at this time and remove the Rios catheter which time a cystoscope was placed and the bladder which was filled with sterile water. The dome of the bladder was noted to be normal both from the cystoscopic and laparoscopic perspective. The bilateral ureteral [place] were examined and noted to be peristalsing normally. All instrumentation was then removed and the Rios catheter replaced. The robot was undocked and the ports removed after evacuating the pneumoperitoneum. The skin was closed with i nterrupted subcuticular stitches of 4-0 Vicryl followed by half-inch Steri- Strips. 10 mL of half percent ropivacaine without epinephrine were equally instilled among the 4 incisions. Estimated blood loss for the entire case was approximately 100 mL. There were no complications. All sponge, instrument, needle counts were correct. The patient tolerated the procedure well and proceeded to the recovery room in stable condition.
[2018-06-14] MEDS ORDERED: LACTATED RINGERS 1,000 ML IV SCH (09:45)
[2018-06-14] MEDS: HYDROmorphone 0.5 MG/0.5 ML SYRINGE IVP PRN ×2 (10:39→10:43)
[2018-06-14] MEDS: KETOROLAC 30 MG/ML 1 ML VIAL IVP PRN ×2 (11:27→18:20)
[2018-06-14] MEDS: SYMBICORT 160-4.5 MCG INHALER INHALATION SCH (20:22)
[2018-06-14] MEDS: SENNOSIDES-DOCUSATE SODIUM 1 EACH TAB PO SCH (20:53)
[2018-06-14] MEDS ORDERED: MONTELUKAST 10 MG TAB PO SCH (21:00)
[2018-06-14 22:33] VITALS: RESP 18
[2018-06-15 07:57] LABS: Basophils % (A) 0 %; Eosinophils # (A) 0.1 k/uL (0-0.7); Eosinophils % (A) 1 %; HCT 32.5 % (34.0-46.0); Lymphocytes # (A) 1.7 k/uL (1.0-4.8); Lymphocytes % (A) 15 %; MCH 29.2 pg (25.0-35.0); MCHC 33.8 g/dL (31.0-37.0); MCV 86.4 fL (80.0-100.0); Mean Platelet Volume 7.5; Monocytes # (A) 0.5 k/uL (0-1.0); Monocytes % (A) 5 %; Neutrophils # (A) 8.8 k/uL (1.3-7.7); Neutrophils % (A) 78 %; Platelet Count 295 k/uL (150-450); RBC 3.76 m/uL (3.80-5.40); WBC 11.3 k/uL (3.8-10.6)
[2018-06-15] MEDS: SYMBICORT 160-4.5 MCG INHALER INHALATION SCH (08:05)
--- NOTE | 2018-06-15 08:11 | P.DS ---
Providers Date of admission: 06/15/18 01:21 Expected date of discharge: 06/15/18 Attending physician: Gerald Olvera Primary care physician: Graeme Saxena - Discharge Diagnosis(es) (1) Menorrhagia Current Visit: Yes Status: Acute (2) Breast cancer, right Current Visit: No Status: Acute (3) S/P laparoscopic hysterectomy Current Visit: Yes Status: Acute Hospital Course: This is a 42-year-old female that underwent robotic-assisted laparoscopic hysterectomy with bilateral salpingo-oophorectomy and diagnostic cystoscopy with Dr. Olvera on 06/14/18. Patient has a history of ER/[place] positive breast cancer and menorrhagia. Patient elected definitive treatment with hysterectomy and bilateral salpingo-oophorectomy. Patient underwent surgery for further details on the surgery please see the operative report. Patient's postoperative course has been uneventful. Overnight she has done well. She is ambulating and voiding without difficulty. She denies pain this morning. She is tolerating a regular diet without nausea or vomiting. She does wish discharge home. Patient Condition at Discharge: Good Plan - Discharge Summary Discharge Rx Participant: Yes New Discharge Prescriptions: No Action Lisinopril [Zestril] 20 mg PO DAILY Hydrochlorothiazide [Hydrodiuril] 25 mg PO DAILY Letrozole [Femara] 2.5 mg PO DAILY Ergocalciferol [Vitamin D2] 50,000 unit PO WE Loratadine [Claritin] 10 mg PO DAILY PRN PRN Reason: Allergy Symptoms Budesonide-Formot 160-4.5 Mcg [Symbicort 160-4.5 Mcg Inhaler] 2 puff INHALATION BID Montelukast Sodium [Singulair] 10 mg PO HS Metoprolol Succinate (ER) [Toprol Xl] 50 mg PO DAILY Discharge Medication List Hydrochlorothiazide [Hydrodiuril] 25 mg PO DAILY 10/15/13 [History] Lisinopril [Zestril] 20 mg PO DAILY 10/15/13 [History] Letrozole [Femara] 2.5 mg PO DAILY 07/14/17 [History] Ergocalciferol [Vitamin D2] 50,000 unit PO WE 05/11/18 [History] Budesonide-Formot 160-4.5 Mcg [Symbicort 160-4.5 Mcg Inhaler] 2 puff INHALATION BID 06/08/18 [History] Loratadine [Claritin] 10 mg PO DAILY PRN 06/08/18 [History] Metoprolol Succinate (ER) [Toprol Xl] 50 mg PO DAILY 06/08/18 [History] Montelukast Sodium [Singulair] 10 mg PO HS 06/08/18 [History] Follow up Appointment(s)/Referral(s): Gerald Olvera MD [STAFF PHYSICIAN] - 2 Weeks Patient Instructions/Handouts: Laparoscopic Hysterectomy (DC) Discharge Disposition: HOME SELF-CARE
[2018-06-15 08:15] VITALS: BP 109/69; PULSE 83; TEMP 98
[2018-06-15] MEDS: SENNOSIDES-DOCUSATE SODIUM 1 EACH TAB PO SCH (08:32)
== END 2018-06-15 09:45 | disposition home or self-care (01) ==
LOC: OR 05:55 → 4FBP 09:37 → OR 06-15 01:20 → INTOOBSV 06-15 01:21 → UNDOADMOB 06-15 01:21 → 4FBP 06-15 01:21 → UNDODISOB 06-15 09:45 → OR 06-15 09:45
PROVIDERS: ATTEND Obstetrics & Gynecology
DX: N92.0 Excessive and frequent menstruation with regular cycle (principal); D25.9 Leiomyoma of uterus, unspecified; N83.02 Follicular cyst of left ovary; N83.01 Follicular cyst of right ovary; N83.8 Other noninflammatory disorders of ovary, fallopian tube and broad ligament; Z79.899 Other long term (current) drug therapy; Z92.21 Personal history of antineoplastic chemotherapy; Z92.3 Personal history of irradiation; Z85.3 Personal history of malignant neoplasm of breast; E66.01 Morbid (severe) obesity due to excess calories; Z68.43 Body mass index [BMI] 50.0-59.9, adult; Z80.3 Family history of malignant neoplasm of breast; Z80.41 Family history of malignant neoplasm of ovary; Z80.49 Family history of malignant neoplasm of other genital organs; I10 Essential (primary) hypertension; Z17.0 Estrogen receptor positive status [ER+]; Z79.811 Long term (current) use of aromatase inhibitors
CPT/HCPCS: 58571; S2900; 36415; 81025; 85025; 86850; 86870; 86880; 86900; 86901; 88307; 94640